=== PATIENT | female | born 1935 | race Caucasian/White ===

== ENCOUNTER → 2023-03-27 | Outpatient (CLI) | payer MEDICARE, BC ==
--- NOTE | 2023-03-27 12:21 | XR ---
EXAMINATION TYPE: XR foot complete 3 views LT DATE OF EXAM: 03/27/2023 Comparison: None Clinical History: 87-year-old female L97.522 NON PRESSURE CHRONIC ULCER OF OTHER PART OF LEFT JEANINE Findings: Marked osteopenia. Degenerative change throughout the TMT joint articulations. Hammertoes. The degree of osteopenia limits assessment for subtle nondisplaced fractures. There is generalized soft tissue swelling in the visualized lower leg. Some possible degenerative subchondral sclerosis at the tibiota lar joint. Tiny plantar heel spur. Possible mild pes planus. No displaced fracture is seen. Impression: 1. 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 2. Pes planus is suggested. 3. There may be some degenerative subchondral sclerosis at the ankle joint. 4. The degree of osteopenia limits assessment. No displaced fracture seen. 5. Generalized soft tissue swelling of the visualized length.
[2023-03-27 16:06] LABS: Prealbumin 16.1 mg/dL (18.0-42.0)
[2023-03-27 16:18] LABS: ALT 226 U/L (8-44); AST 230 U/L (13-35); Albumin 3.8 d/dL (3.8-4.9); Albumin/Globulin Ratio 1.15 Ratio (1.60-3.17); Alkaline Phosphatase 708 U/L (41-126); BUN/Creat Ratio 62.33 Ratio (12.00-20.00); Blood Urea Nitrogen 56.1 mg/dL (9.0-27.0); Calcium 9.5 mg/dL (8.7-10.3); Carbon Dioxide 21.5 mmol/L (21.6-31.8); Chloride 100 mmol/L (96-109); Globulin 3.3 d/dL (1.6-3.3); Glucose 101 mg/dL (70-110); Potassium 4.4 mmol/L (3.5-5.5); Sodium 135 mmol/L (135-145); Total Bilirubin 1.8 mg/dL (0.3-1.2); Total Protein 7.1 d/dL (6.2-8.2)
[2023-03-27 16:21] LABS: Basophils # (A) 0.03 X 10*3/uL (0.00-0.10); Eosinophils # (A) 0.02 X 10*3/uL (0.04-0.35); Eosinophils % (A) 0.7 %; HCT 38.3 % (37.2-46.3); HGB 12.7 d/dL (12.0-15.0); Immature Platelet Fraction 6.4 % (1.1-6.1); Lymphocytes # (A) 0.43 X 10*3/uL (0.90-5.00); Lymphocytes % (A) 14.1 %; MCH 33.7 pg (27.0-32.0); MCHC 33.2 d/dL (32.0-37.0); MCV 101.6 FL (80.0-97.0); Mean Platelet Volume 11.2 FL (9.5-12.2); Monocytes # (A) 0.32 X 10*3/uL (0.20-1.00); Monocytes % (A) 10.5 %; NRBC Per 100 WBC 0 X 10*3/uL (0.00-0.01); Neutrophils # (A) 2.23 X 10*3/uL (1.80-7.70); Neutrophils % (A) 73.4 %; Platelet Count 67 X 10*3/uL (140-440); RBC 3.77 X 10*6/uL (4.10-5.20); RBC Morphology Normal (Normal); RDW 15.2 % (11.5-14.5); WBC 3.04 X 10*3/uL (4.50-10.00)
== END | disposition home or self-care (01) ==
LOC: LABWHC1 10:03
PROVIDERS: ATTEND Podiatrist
DX: I10 Essential (primary) hypertension (principal); L97.522 Non-pressure chronic ulcer of other part of left foot with fat layer exposed; I73.9 Peripheral vascular disease, unspecified; G60.3 Idiopathic progressive neuropathy
CPT/HCPCS: 36415; 80053; 84134; 85025

== ENCOUNTER → 2023-06-03 | Outpatient (CLI) | payer MEDICARE, BC ==
--- NOTE | 2023-06-03 20:23 | US ---
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 Loss of feeling at bottom of foot. History of: Smoker: Previous Hypertension: No Diabetic: No Hyperlipidemia: No TIA/CVA: No Previous Vascular Surgery: No CAD: Yes WV: No Vascular Ulcers: Left Claudication: No Gangrene: No Doppler Waveforms: Are normal bilaterally with triphasic waveforms with the exception below. Right: Monophasic waveforms are within the distal digit. Left: Monophasic wave forms are within the distal digit Right Brachial Pressure: 121 Left Brachial Pressure: 107 Ankle-Brachial Indices: Right: 1.2 Left: 1.3 Toe Brachial Indices: Right: 0.9 Left: 0.9 IMPRESSION: No significant flow-limiting stenosis by arterial ultrasound.
== END | disposition home or self-care (01) ==
LOC: RADUSWWP 12:50
PROVIDERS: ATTEND Podiatrist
DX: I87.2 Venous insufficiency (chronic) (peripheral) (principal)
CPT/HCPCS: 93922

== ENCOUNTER 2023-06-05 20:08 | Emergency (ER) | payer BC, MEDICARE ==
[2023-06-05 20:22] VITALS: RESP 16; TEMP 97.5
--- NOTE | 2023-06-05 20:30 | ED ---
Altered Mental Status HPI - General Chief Complaint: Altered Mental Status Stated Complaint: UTI WEAKNESS Time Seen by Provider: 06/05/23 20:15 Source: patient, EMS Mode of arrival: EMS Limitations: no limitations - History of Present Illness Initial Comments: 87-year-old female with past medical history of recurrent UTIs who presents to the emergency department with daughter who is reporting change in her mental status. Daughter provides history. States that her mother has had some worsening confusion over the past week. It is very consistent of when she gets urinary tract infections. Today she went over to her house to find her on the toilet. She was dry heaving. She seemed very weak and therefore they called EMS. Patient arrives and has no complaints. No recent fevers. She denies any nausea at this time. No burning, blood or frequency of urination. No black or bloody stools. She has had some increasing lower extremity swelling. No other alleviating, precipitating or modifying factors - Related Data Allergies Allergy/AdvReac Type Severity Reaction Status Date / Time Penicillins Allergy Rash/Hives Verified 06/05/23 20:23 Review of Systems ROS Statement: Those systems with pertinent positive or pertinent negative responses have been documented in the HPI. ROS Other: All systems not noted in ROS Statement are negative. Past Medical History History of Any Multi-Drug Resistant Organisms: None Reported Past Surgical History: Section Additional Past Surgical History / Comment(s): Rt hip replacement Past Psychological History: No Psychological Hx Reported Smoking Status: Former smoker Past Alcohol Use History: None Reported Past Drug Use History: None Reported General Exam Limitations: no limitations General appearance: alert, in no apparent distress Head exam: Present: atraumatic, normocephalic, normal inspection Eye exam: Present: normal appearance, PERRL, EOMI. Absent: scleral icterus, conjunctival injection, periorbital swelling ENT exam: Present: normal exam, mucous membranes moist Neck exam: Present: normal inspection. Absent: tenderness, meningismus, lymphadenopathy Respiratory exam: Present: normal lung sounds bilaterally. Absent: respiratory distress, wheezes, rales, rhonchi, stridor Cardiovascular Exam: Present: regular rate, normal rhythm, normal heart sounds. Absent: systolic murmur, diastolic murmur, rubs, gallop, clicks GI/Abdominal exam: Present: soft, normal bowel sounds. Absent: distended, tenderness, guarding, rebound, rigid Extremities exam: Present: full ROM, normal capillary refill, pedal edema (3+ ). Absent: tenderness, joint swelling, calf tenderness Back exam: Present: normal inspection Neurological exam: Present: alert, CN II-XII intact Psychiatric exam: Present: normal mood, flat affect Skin exam: Present: warm, dry, intact, normal color. Absent: rash Course Vital Signs 06/05/23 06/05/23 06/06/23 20:12 23:22 01:22 Temperature 97.5 F L Pulse Rate 58 L 56 L 52 L Respiratory 16 16 16 Rate Blood Pressure 130/55 130/59 135/57 O2 Sat by Pulse 94 L 96 97 Oximetry Medical Decision Making - Medical Decision Making Was pt. sent in by a medical professional or institution ([facility], HAND MOLDER, urgent care, hospital, or residential...) When possible be specific @ -No Did you speak to anyone other than the patient for history (EMS, parent, family, police, friend...)? What history was obtained from this source @ -I spoke with EMS and the daughter at bedside Did you review nursing and triage notes (agree or disagree)? Why? @ -I reviewed and agree with nursing and triage notes Were old charts reviewed (outside hosp., previous admission, EMS record, old EKG, old radiological studies, urgent care reports/EKG's, residential records)? Report findings @ -Labs were reviewed from March of this year Differential Diagnosis (chest pain, altered mental status, abdominal pain women, abdominal pain men, vaginal bleeding, weakness, fever, dyspnea, syncope, headache, dizziness, GI bleed, back pain, seizure, CVA, palpatations, mental health, musculoskeletal)? @ -Differential Altered Mental Status: Hypoglycemia, DKA, hypercapnia, ETOH, overdose, CO poisoning, trauma, myxedema coma, HTN encephalopathy, infection, encephalitis, psychosis, intercranial hemorrhage, hepatic encephalopathy, meningitis, CVA, this is not meant to be an all-inclusive list EKG interpreted by me (3pts min.). @ -Demonstrates sinus bradycardia with a rate of 56. MS interval 201. QRS 88. QTC 402. No acute ST segment elevations or depressions X-rays interpreted by me (1pt min.). @ -Yes and demonstrates large hiatal hernia CT interpreted by me (1pt min.). @ -Yes and demonstrates pancreatic mass, adenopathy, marked hepatomegaly and splenomegaly U/S interpreted by me (1pt. min.). @ -None done What testing was considered but not performed or refused? (CT, X-rays, U/S, labs)? Why? @ -Lower extremity Dopplers however patient needs to be transferred at this time and therefore further testing will be deferred to receiving facility What meds were considered but not given or refused? Why? @ -None Did you discuss the management of the patient with other professionals (professionals i.e. DrCurt, PA, HAND MOLDER, lab, RT, psych nurse, case management social worker, automotive exhaust emissions technician, teacher, vessel traffic officer, manager case)? Give summary @ -Spoke with Dr. Street who states that the patient needs to be transferred Was smoking cessation discussed for >3mins.? @ -No Was critical care preformed (if so, how long)? @ -No Were there social determinants of health that impacted care today? How? (Homelessness, low income, unemployed, alcoholism, drug addiction, transportation, low edu. Level, literacy, decrease access to med. care, shelter, rehab)? @ -No Was there de-escalation of care discussed even if they declined (Discuss DNR or withdrawal of care, Hospice)? DNR status @ -No What co-morbidities impacted this encounter? (DM, HTN, Smoking, COPD, CAD, Cancer, CVA, ARF, Chemo, Hep., AIDS, mental health diagnosis, sleep apnea, morbid obesity)? @ -Recurrent UTIs Was patient admitted / discharged? Hospital course, mention meds given and route, prescriptions, significant lab abnormalities, going to OR and other pertinent info. @ -Upon arrival patient was placed into room 21. A thorough history and physical exam was performed. IV is established. Laboratory studies are conducted. Urinalysis does demonstrate UTI. She is given a dose of Rocephin. Laboratory studies reveal elevated liver enzymes. CT was performed which demonstrates pancreatic mass. Called and spoke with Dr. Street who is refusing admission. States the patient needs to be transferred for GI. Called and spoke with [facility] [place]. They do accept the patient is a transfer. COBRA forms are signed. Patient is transferred in stable condition. Undiagnosed new problem with uncertain prognosis? @ -Yes Drug Therapy requiring intensive monitoring for toxicity (Heparin, Nitro, Insulin, Cardizem)? @ -No Were any procedures done? @ -No Diagnosis/symptom? @ -Acute encephalopathy, acute UTI, transaminitis, pancreatic mass Acute, or Chronic, or Acute on Chronic? @ -Acute Uncomplicated (without systemic symptoms) or Complicated (systemic symptoms)? @ -Complicated Side effects of treatment? @ -No Exacerbation, Progression, or Severe Exacerbation? @ -No Poses a threat to life or bodily function? How? (Chest pain, USA, VT, pneumonia, PE, COPD, DKA, ARF, appy, cholecystitis, CVA, Diverticulitis, Homicidal, Suicidal, threat to staff... and all critical care pts) @ -No - Lab Data Result diagrams: 06/05/23 21:20 06/05/23 21:20 Lab Results 06/05/23 06/05/23 06/05/23 Range/Units 21:20 21:20 21:20 WBC 2.4 L (3.8-10.6) k/uL RBC 3.77 L (3.80-5.40) m/uL Hgb 13.0 (11.4-16.0) gm/dL Hct 38.1 (34.0-46.0) % MCV 101.2 H (80.0-100.0) fL MCH 34.6 (25.0-35.0) pg MCHC 34.2 (31.0-37.0) g/dL RDW 14.7 (11.5-15.5) % Plt Count 72 L (150-450) k/uL MPV 8.2 Neutrophils % 78 % Lymphocytes % 13 % Monocytes % 7 % Eosinophils % 1 % Basophils % 0 % Neutrophils # 1.9 (1.3-7.7) k/uL Lymphocytes # 0.3 L (1.0-4.8) k/uL Monocytes # 0.2 (0-1.0) k/uL Eosinophils # 0.0 (0-0.7) k/uL Basophils # 0.0 (0-0.2) k/uL Manual Slide Review Performed Polychromasia Present Macrocytosis Slight PT 11.3 (9.0-12.0) sec INR 1.1 (<1.2) APTT 23.7 (22.0-30.0) sec Sodium 133 L (137-145) mmol/L Potassium 4.8 (3.5-5.1) mmol/L Chloride 100 (98-107) mmol/L Carbon Dioxide 26 (22-30) mmol/L Anion Gap 7 mmol/L BUN 66 H (7-17) mg/dL Creatinine 0.86 (0.52-1.04) mg/dL Est GFR (CKD-EPI)AfAm 70 (>60 ml/min/1.73 sqM) Est GFR (CKD-EPI)NonAf 61 (>60 ml/min/1.73 sqM) Glucose 119 H (74-99) mg/dL Plasma Lactic Acid Juan Jose (0.7-2.0) mmol/L Calcium 9.5 (8.4-10.2) mg/dL Total Bilirubin 2.3 H (0.2-1.3) mg/dL AST 235 H (14-36) U/L ALT 227 H (4-34) U/L Alkaline Phosphatase 624 H (38-126) U/L Troponin I (0.000-0.034) ng/mL NT-Pro-B Natriuret Pep 390 pg/mL Total Protein 7.1 (6.3-8.2) g/dL Albumin 3.5 (3.5-5.0) g/dL TSH 3.570 (0.465-4.680) mIU/L Urine Color Urine Appearance (Clear) Urine pH (5.0-8.0) Ur Specific [place] (1.001-1.035) Urine Protein (Negative) Urine Glucose (UA) (Negative) Urine Ketones (Negative) Urine Blood (Negative) Urine Nitrite (Negative) Urine Bilirubin (Negative) Urine Urobilinogen (<2.0) mg/dL Ur Leukocyte Esterase (Negative) Urine RBC (0-5) /hpf Urine WBC (0-5) /hpf Ur Squamous Epith Cells (0-4) /hpf Urine Bacteria (None) /hpf Digoxin 0.6 ng/mL 06/05/23 06/05/23 06/05/23 Range/Units 21:20 21:20 23:58 WBC (3.8-10.6) k/uL RBC (3.80-5.40) m/uL Hgb (11.4-16.0) gm/dL Hct (34.0-46.0) % MCV (80.0-100.0) fL MCH (25.0-35.0) pg MCHC (31.0-37.0) g/dL RDW (11.5-15.5) % Plt Count (150-450) k/uL MPV Neutrophils % % Lymphocytes % % Monocytes % % Eosinophils % % Basophils % % Neutrophils # (1.3-7.7) k/uL Lymphocytes # (1.0-4.8) k/uL Monocytes # (0-1.0) k/uL Eosinophils # (0-0.7) k/uL Basophils # (0-0.2) k/uL Manual Slide Review Polychromasia Macrocytosis PT (9.0-12.0) sec INR (<1.2) APTT (22.0-30.0) sec Sodium (137-145) mmol/L Potassium (3.5-5.1) mmol/L Chloride (98-107) mmol/L Carbon Dioxide (22-30) mmol/L Anion Gap mmol/L BUN (7-17) mg/dL Creatinine (0.52-1.04) mg/dL Est GFR (CKD-EPI)AfAm (>60 ml/min/1.73 sqM) Est GFR (CKD-EPI)NonAf (>60 ml/min/1.73 sqM) Glucose (74-99) mg/dL Plasma Lactic Acid Juan Jose 0.8 (0.7-2.0) mmol/L Calcium (8.4-10.2) mg/dL Total Bilirubin (0.2-1.3) mg/dL AST (14-36) U/L ALT (4-34) U/L Alkaline Phosphatase (38-126) U/L Troponin I <0.012 (0.000-0.034) ng/mL NT-Pro-B Natriuret Pep pg/mL Total Protein (6.3-8.2) g/dL Albumin (3.5-5.0) g/dL TSH (0.465-4.680) mIU/L Urine Color Yellow Urine Appearance Clear (Clear) Urine pH 6.0 (5.0-8.0) Ur Specific [place] 1.015 (1.001-1.035) Urine Protein Negative (Negative) Urine Glucose (UA) Negative (Negative) Urine Ketones Negative (Negative) Urine Blood Negative (Negative) Urine Nitrite Negative (Negative) Urine Bilirubin Negative (Negative) Urine Urobilinogen <2.0 (<2.0) mg/dL Ur Leukocyte Esterase Moderate H (Negative) Urine RBC 4 (0-5) /hpf Urine WBC 9 H (0-5) /hpf Ur Squamous Epith Cells <1 (0-4) /hpf Urine Bacteria Many H (None) /hpf Digoxin ng/mL Disposition Clinical Impression: Pancreatic mass, Encephalopathy acute, UTI (urinary tract infection), Transaminitis Disposition: OTHER INSTITUTION NOT DEFINED Condition: Serious Is patient prescribed a controlled substance at d/c from ED?: No Referrals: Boby Singh DO [Primary Care Provider] - 1-2 days - Out of Hospital Transfer - Req. Specs Out of Hospital Transfer - Requested Specifics: Other Emergency Center ([facility]
--- NOTE | 2023-06-05 22:11 | XR ---
EXAMINATION TYPE: XR chest 2V DATE OF EXAM: 06/05/2023 COMPARISON: None TECHNIQUE: PA and lateral views submitted. HISTORY: Altered mental status FINDINGS: No pneumothorax. Tiny bilateral pleural effusions. Hypertrophic and degenerative changes spine. Conge stion compression deformities in the thoracic spine of indeterminate age. Arthropathy shoulders. Larg e hiatal hernia. Coarsened interstitium with emphysematous changes. Bibasilar subsegmental consolidat ion. IMPRESSION: 1. Large hiatal hernia with coarsened interstitium may been the basis of chronic interstitial lung di sease. Acute interstitial pneumonitis not excluded. 2. Bilateral basilar atelectasis favored over pneumonia.
[2023-06-05 22:16] LABS: Basophils % (A) 0 %; Eosinophils % (A) 1 %; HCT 38.1 % (34.0-46.0); Lymphocytes # (A) 0.3 k/uL (1.0-4.8); Lymphocytes % (A) 13 %; MCH 34.6 pg (25.0-35.0); MCHC 34.2 g/dL (31.0-37.0); MCV 101.2 fL (80.0-100.0); Macrocytosis Slight; Mean Platelet Volume 8.2; Monocytes # (A) 0.2 k/uL (0-1.0); Monocytes % (A) 7 %; Neutrophils # (A) 1.9 k/uL (1.3-7.7); Neutrophils % (A) 78 %; RBC 3.77 m/uL (3.80-5.40); RDW 14.7 % (11.5-15.5); WBC 2.4 k/uL (3.8-10.6)
[2023-06-05 22:21] LABS: INR 1.1 (<1.2); Partial Thromboplastin Time 23.7 sec (22.0-30.0); Prothrombin Time 11.3 sec (9.0-12.0)
[2023-06-05 22:27] LABS: ALT 227 U/L (4-34); AST 235 U/L (14-36); African American GFR (CKD) 70 (>60 ml/min/1.73 sqM); Albumin 3.5 g/dL (3.5-5.0); Anion Gap 7 mmol/L; Blood Urea Nitrogen 66 mg/dL (7-17); Calcium 9.5 mg/dL (8.4-10.2); Carbon Dioxide 26 mmol/L (22-30); Chloride 100 mmol/L (98-107); Glucose 119 mg/dL (74-99); Non-African American GFR(CKD) 61 (>60 ml/min/1.73 sqM); Potassium 4.8 mmol/L (3.5-5.1); Sodium 133 mmol/L (137-145); Total Bilirubin 2.3 mg/dL (0.2-1.3); Total Protein 7.1 g/dL (6.3-8.2)
[2023-06-05 22:35] LABS: NT-Pro-B-Type Natriuretic Pept 390 pg/mL
[2023-06-05 22:43] LABS: Platelet Count 72 k/uL (150-450); Polychromasia Present
[2023-06-05 23:03] LABS: Alkaline Phosphatase 624 U/L (38-126); Digoxin 0.6 ng/mL
[2023-06-06 00:27] LABS: Appearance,Urine Clear (Clear); Bacteria,Urine Many /hpf; Bilirubin,Urine Negative (Negative); Blood,Urine Negative (Negative); Color,Urine Yellow; Glucose,Urine (UA) Negative (Negative); Ketones,Urine Negative (Negative); Leukocyte Esterase,Urine Moderate (Negative); Nitrite,Urine Negative (Negative); Protein,Urine Negative (Negative); RBC,Urine 4 /hpf (0-5); Specific Gravity,Urine 1.015 (1.001-1.035); Squamous Epithelial Cell,Urine <1 /hpf (0-4); Urobilinogen,Urine <2.0 mg/dL (<2.0); WBC,Urine 9 /hpf (0-5)
[2023-06-06] MEDS ORDERED: cefTRIAXone IN SWFI 1,000 MG/10 ML SYRINGE IVP STA (00:30)
--- NOTE | 2023-06-06 00:57 | CT ---
EXAMINATION TYPE: CT abdomen pelvis w con DATE OF EXAM: 06/06/2023 COMPARISON: None HISTORY: Abdominal pain CT DLP: 737.6 mGycm Automated exposure control for dose reduction was used. CONTRAST: CT scan of the abdomen pelvis is performed with IV Contrast, patient injected with 100mL mL of Isovue 300. FINDINGS- LUNG BASES- bilateral subsegmental consolidation. There is a very large hiatal hernia containing the majority of the stomach. Cardiomegaly with coronary artery and aortic valve calcification. LIVER/GB- there is intrahepatic biliary ductal dilation. Gallbladder appears to BE distended with g allstone seen within the dependent portion of the gallbladder. There is lobulated contour to the liver correlate for hepatocellular disease. Prominent recanalized periumbilical vein. PANCREAS- there is pancreatic ductal dilation. Largest cystic area is seen in the peripancreatic spa ce and pancreatic body measuring 3.2 cm. Pancreatic mass in the differential diagnosis. SPLEEN- spleen is enlarged measuring 19 cm and is extensive intra-abdominal varices. Pelvic varices are also noted extensively with large vascular structures in the presacral space. ADRENALS- nonspecific bilateral adrenal gland thickening KIDNEYS/[id number]-[id number] renal cortical and parapelvic cysts are noted. Mild bilateral pelvocaliec tasis. No definite calcifications. BOWEL- there is extensive changes of diverticulosis and there is retained debris correlate for const ipation. Appendix not visualized. Numerous air filled small bowel loops are seen in a nonspecific pat tern. LYMPH NODES- in the peripancreatic region there is soft tissue nodule with a short axis measurement of 1.1 cm compatible adenopathy. OSSEOUS STRUCTURES- postsurgical change involving the right shoulder with left hip arthropathy. Scol iosis with severe multilevel degenerative disc disease and facet arthropathy. Multilevel canal stenos is. OTHER- aorta of normal caliber with mild atherosclerotic changes. IMPRESSION- 1. Correlate for hepatocellular disease and portal venous hypertension with marked splenomegaly measu ring 19 cm. 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 2. Mild intra and extrahepatic biliary ductal dilation. Dilated pancreatic duct with a 3.2 cm cystic mass involving the body the pancreas. Recommend MRI to assess for neoplastic disease. 3. Borderline adenopathy in the peripancreatic region. 4. The gallbladder hydrops with cholelithiasis. 5. Large hiatal hernia containing the entire stomach.
[2023-06-06 01:29] VITALS: BP 135/57; PULSE 52
== END 2023-06-06 02:50 | disposition other institution (70) ==
LOC: EC 20:08
DX: G93.40 Encephalopathy, unspecified (principal); N39.0 Urinary tract infection, site not specified; R74.01 Elevation of levels of liver transaminase levels; K86.9 Disease of pancreas, unspecified; Z87.891 Personal history of nicotine dependence; Z88.0 Allergy status to penicillin
CPT/HCPCS: 36415; 93005; 83880; 80053; 84443; 80162; 83605; 84484; 85025; 85610; 85730; 81001; 87040; 71046; 74177; 99285; 96374; J0696; Q9967

== ENCOUNTER 2023-06-22 06:33 | Inpatient (IN) | payer MEDICARE, BC ==
--- NOTE | 2023-06-22 07:53 | XR ---
EXAMINATION TYPE: XR chest 1V portable DATE OF EXAM: 06/22/2023 7:34 AM COMPARISON: Chest radiographs from 06/05/2023 TECHNIQUE: XR chest 1V portable Portable AP radiograph of the chest. CLINICAL INDICATION:Female, 87 years old with history of altered mental status; FINDINGS: Lungs/Pleura: Blunting of both costophrenic angles with bibasilar airspace opacities. Hyperinflation. No pneumothorax. Pulmonary vascularity: Unremarkable. Heart/mediastinum: Cardiomediastinal silhouette is enlarged and stable. Atherosclerotic calcificatio ns are seen in the aorta. Musculoskeletal: No acute osseous pathology. Other findings: Large hiatal hernia. IMPRESSION: 1. Background COPD changes with small bilateral pleural effusions with bibasilar patchy airspace opa cities concerning for infiltrates versus atelectasis. 2. Large hiatal hernia.
[2023-06-22] MEDS ORDERED: SODIUM CHLORIDE 0.9% 1,000 ML IV ONE (07:55)
[2023-06-22 08:32] LABS: INR 1.1 (<1.2); Partial Thromboplastin Time 25.4 sec (22.0-30.0); Prothrombin Time 11.1 sec (9.0-12.0)
[2023-06-22 08:37] LABS: Basophils % (A) 0 %; Eosinophils # (A) 0.1 k/uL (0-0.7); Eosinophils % (A) 1 %; HCT 33.6 % (34.0-46.0); HGB 11.7 gm/dL (11.4-16.0); Lymphocytes # (A) 0.5 k/uL (1.0-4.8); Lymphocytes % (A) 10 %; MCH 34.5 pg (25.0-35.0); MCHC 34.9 g/dL (31.0-37.0); Macrocytosis Slight; Mean Platelet Volume 8.6; Monocytes # (A) 0.5 k/uL (0-1.0); Monocytes % (A) 10 %; Neutrophils # (A) 4.1 k/uL (1.3-7.7); Neutrophils % (A) 77 %; RBC 3.39 m/uL (3.80-5.40); RDW 15.1 % (11.5-15.5); WBC 5.3 k/uL (3.8-10.6)
[2023-06-22 08:43] LABS: ALT 87 U/L (4-34); AST 86 U/L (14-36); African American GFR (CKD) >90 (>60 ml/min/1.73 sqM); Albumin 2.2 g/dL (3.5-5.0); Alkaline Phosphatase 420 U/L (38-126); Anion Gap 1 mmol/L; Blood Urea Nitrogen 31 mg/dL (7-17); Calcium 8.9 mg/dL (8.4-10.2); Carbon Dioxide 26 mmol/L (22-30); Chloride 102 mmol/L (98-107); Glucose 103 mg/dL (74-99); Non-African American GFR(CKD) 82 (>60 ml/min/1.73 sqM); Potassium 4.3 mmol/L (3.5-5.1); Sodium 129 mmol/L (137-145)
[2023-06-22] MEDS ORDERED: SODIUM CHLORIDE 0.9% 1,000 ML IV SCH (08:45)
--- NOTE | 2023-06-22 08:45 | ED ---
General Adult HPI - General Chief complaint: Altered Mental Status Stated complaint: AMS Time Seen by Provider: 06/22/23 06:44 Source: family, EMS, RN notes reviewed Mode of arrival: EMS Limitations: altered mental status - History of Present Illness Initial comments: This an 87-year-old female presents emergency Department from detention for evaluation multiple mental status. Daughter is here providing primary information patient was recently seen in the emergency Department was transferred to for [facility] for evaluation of pancreatic abnormality. Patient did have further testing including MRI showing what they believe is pancreatic cancer. They have decided not to pursue any treatment of this what patient was not placed on any palliative or hospice care. Patient was sent to detention for rehab as she is very weak leaving the hospital. Patient normally converses with normal difficulty but is now very lethargic, not conversing well as this is been declining over the last few days. Patient developed severe diarrhea and vomiting has not been eating well since being at the detention. Patient is unable to provide information including possibility of chest pain, abdominal pain any known fever or any specific complaints. - Related Data Home Medications Medication Instructions Recorded Confirmed Dextran/Hypromellose/Glycerin 1 drop BOTH EYES DAILY PRN 06/22/23 06/22/23 [Genteal Tears 0.1%-0.2%-0.3%] Digoxin [Digitek] 62.5 mcg PO DAILY@0600 06/22/23 06/22/23 Ensure Enlive 237 ml PO TID@0800,1200,1700 06/22/23 06/22/23 Hydrocerin External Cream 1 applic TOPICAL BID PRN 06/22/23 06/22/23 Levothyroxine Sodium [Synthroid] 50 mcg PO DAILY@0600 06/22/23 06/22/23 Magic Butt Paste 1 applic TOPICAL TID 06/22/23 06/22/23 Magnesium Hydroxide [Milk of 7,200 mg PO DAILY PRN 06/22/23 06/22/23 Magnesia Concentrate] Na Phos,M-B/Na Phos,Di-Ba [Fleet 133 ml RECTAL DAILY PRN 06/22/23 06/22/23 Adult] Sennosides/Docusate Sodium [Senna 2 tab PO BID PRN 06/22/23 06/22/23 Plus 8.6-50 mg Tablet] Tamsulosin HCl [Flomax] 0.4 mg PO DAILY@0800 06/22/23 06/22/23 bisacodyL [Dulcolax] 10 mg RECTAL DAILY PRN 06/22/23 06/22/23 dilTIAZem HCL [Cardizem CD] 120 mg PO DAILY@0800 06/22/23 06/22/23 polyethylene glycoL 3350 [Miralax] 17 gm PO Q4H PRN 06/22/23 06/22/23 Allergies Allergy/AdvReac Type Severity Reaction Status Date / Time Penicillins Allergy Rash/Hives Verified 06/22/23 08:29 Review of Systems ROS Statement: Those systems with pertinent positive or pertinent negative responses have been documented in the HPI. ROS Other: All systems not noted in ROS Statement are negative. Past Medical History History of Any Multi-Drug Resistant Organisms: None Reported Past Surgical History: Section Additional Past Surgical History / Comment(s): Rt hip replacement Past Psychological History: No Psychological Hx Reported Smoking Status: Former smoker Past Alcohol Use History: None Reported Past Drug Use History: None Reported General Exam Limitations: altered mental status General appearance: alert, in no apparent distress Head exam: Present: atraumatic, normocephalic, normal inspection Eye exam: Present: normal appearance, PERRL, EOMI. Absent: scleral icterus, conjunctival injection, periorbital swelling ENT exam: Present: normal exam, normal oropharynx, mucous membranes moist Neck exam: Present: normal inspection, full ROM. Absent: tenderness, meningismus, lymphadenopathy Respiratory exam: Present: normal lung sounds bilaterally. Absent: respiratory distress, wheezes, rales, rhonchi, stridor Cardiovascular Exam: Present: regular rate, normal rhythm, normal heart sounds. Absent: systolic murmur, diastolic murmur, rubs, gallop, clicks GI/Abdominal exam: Present: soft, normal bowel sounds. Absent: distended, tenderness, guarding, rebound, rigid Neurological exam: Present: alert. Absent: oriented X3 Skin exam: Present: warm, dry, intact, normal color. Absent: rash Course Vital Signs 06/22/23 06/22/23 06/22/23 06:52 07:56 09:36 Temperature 98.3 F 97.4 F L Pulse Rate 80 80 80 Respiratory 16 18 16 Rate Blood Pressure 121/62 111/58 105/55 O2 Sat by Pulse 91 L 92 L 91 L Oximetry EKG Findings - EKG Comments: EKG Findings:: EKG performed at 17:40 sinus rhythm with first-degree block rate of 77 ND 248 QRS 90 QT/QTC 356/388 - EKG Results: EKG: interpreted by SEGUNDO Medical Decision Making - Medical Decision Making Was pt. sent in by a medical professional or institution (, PA, OFFSET LITHOGRAPHIC PRESS OPERATOR, urgent care, hospital, or detention...) When possible be specific @ -alf Did you speak to anyone other than the patient for history (EMS, parent, family, police, friend...)? What history was obtained from this source @ -EMS and family room providing all significant history Did you review nursing and triage notes (agree or disagree)? Why? @ -I reviewed and agree with nursing and triage notes Were old charts reviewed (outside hosp., previous admission, EMS record, old EKG, old radiological studies, urgent care reports/EKG's, detention records)? Report findings @ -Reviewed recent ER visits including laboratory studies, CT Differential Diagnosis (chest pain, altered mental status, abdominal pain women, abdominal pain men, vaginal bleeding, weakness, fever, dyspnea, syncope, headache, dizziness, GI bleed, back pain, seizure, CVA, palpatations, mental health, musculoskeletal)? @ -nDifferential Altered Mental Status: Hypoglycemia, DKA, hypercapnia, ETOH, overdose, CO poisoning, trauma, myxedema coma, HTN encephalopathy, infection, encephalitis, psychosis, intercranial hemorrhage, hepatic encephalopathy, meningitis, CVA, this is not meant to be an all-inclusive listable EKG interpreted by me (3pts min.). @ -As above X-rays interpreted by me (1pt min.). @ -Chest x-ray shows possible atelectasis or early infiltrate CT interpreted by me (1pt min.). @ -None done U/S interpreted by me (1pt. min.). @ -None done What testing was considered but not performed or refused? (CT, X-rays, U/S, labs)? Why? @ -None What meds were considered but not given or refused? Why? @ -None Did you discuss the management of the patient with other professionals (professionals i.e. , RANDALL, OFFSET LITHOGRAPHIC PRESS OPERATOR, lab, RT, psych nurse, social work manager, engraver hand hard metals, teacher, motorcycle police officer, case managers)? Give summary @ -Dr. Street for admission given patient UTI, dehydration, altered mental status Was smoking cessation discussed for >3mins.? @ -No Was critical care preformed (if so, how long)? @ -No Were there social determinants of health that impacted care today? How? (Homelessness, low income, unemployed, alcoholism, drug addiction, transportation, low edu. Level, literacy, decrease access to med. care, assisted, rehab)? @ -No Was there de-escalation of care discussed even if they declined (Discuss DNR or withdrawal of care, Hospice)? DNR status @ -No What co-morbidities impacted this encounter? (DM, HTN, Smoking, COPD, CAD, Cancer, CVA, ARF, Chemo, Hep., AIDS, mental health diagnosis, sleep apnea, morbid obesity)? @ -Pancreatic cancer Was patient admitted / discharged? Hospital course, mention meds given and route, prescriptions, significant lab abnormalities, going to OR and other pertinent info. @ -Admitted patient is improved after some IV fluids patient's found to have UTI, dehydration. Patient's been having increasing weakness, change in mental status or last few days. She has no focal neurological deficits. Patient will be given Rocephin, blood culture drawn, urine culture. Patient will have additional x-ray of the hip ordered as she is not complaining of hip pain. Undiagnosed new problem with uncertain prognosis? @ -No Drug Therapy requiring intensive monitoring for toxicity (Heparin, Nitro, Insulin, Cardizem)? @ -No Were any procedures done? @ -No Diagnosis/symptom? @ -Weakness, UTI, altered mental status, dehydration Acute, or Chronic, or Acute on Chronic? @ -Acute Uncomplicated (without systemic symptoms) or (systemic symptoms)? @ -complicated Side effects of treatment? @ -No Exacerbation, Progression, or Severe Exacerbation? @ -No Poses a threat to life or bodily function? How? (Chest pain, USA, OR, pneumonia, PE, COPD, DKA, ARF, appy, cholecystitis, CVA, Diverticulitis, Homicidal, Suicidal, threat to staff... and all critical care pts) @ -[yes patient has pancreatic cancer, UTI, possible early sepsis - Lab Data Result diagrams: 06/22/23 07:13 06/22/23 07:13 Lab Results 06/22/23 06/22/23 06/22/23 Range/Units 07:13 07:13 07:13 WBC 5.3 (3.8-10.6) k/uL RBC 3.39 L (3.80-5.40) m/uL Hgb 11.7 (11.4-16.0) gm/dL Hct 33.6 L (34.0-46.0) % MCV 99.0 (80.0-100.0) fL MCH 34.5 (25.0-35.0) pg MCHC 34.9 (31.0-37.0) g/dL RDW 15.1 (11.5-15.5) % Plt Count 71 L (150-450) k/uL MPV 8.6 Neutrophils % 77 % Lymphocytes % 10 % Monocytes % 10 % Eosinophils % 1 % Basophils % 0 % Neutrophils # 4.1 (1.3-7.7) k/uL Lymphocytes # 0.5 L (1.0-4.8) k/uL Monocytes # 0.5 (0-1.0) k/uL Eosinophils # 0.1 (0-0.7) k/uL Basophils # 0.0 (0-0.2) k/uL Macrocytosis Slight PT 11.1 (9.0-12.0) sec INR 1.1 (<1.2) APTT 25.4 (22.0-30.0) sec Sodium 129 L (137-145) mmol/L Potassium 4.3 (3.5-5.1) mmol/L Chloride 102 (98-107) mmol/L Carbon Dioxide 26 (22-30) mmol/L Anion Gap 1 mmol/L BUN 31 H (7-17) mg/dL Creatinine 0.59 (0.52-1.04) mg/dL Est GFR (CKD-EPI)AfAm >90 (>60 ml/min/1.73 sqM) Est GFR (CKD-EPI)NonAf 82 (>60 ml/min/1.73 sqM) Glucose 103 H (74-99) mg/dL Calcium 8.9 (8.4-10.2) mg/dL Total Bilirubin 2.0 H (0.2-1.3) mg/dL AST 86 H (14-36) U/L ALT 87 H (4-34) U/L Alkaline Phosphatase 420 H (38-126) U/L Ammonia (<30) umol/L Troponin I (0.000-0.034) ng/mL Total Protein 5.0 L (6.3-8.2) g/dL Albumin 2.2 L (3.5-5.0) g/dL Urine Color Urine Appearance (Clear) Urine pH (5.0-8.0) Ur Specific [place] (1.001-1.035) Urine Protein (Negative) Urine Glucose (UA) (Negative) Urine Ketones (Negative) Urine Blood (Negative) Urine Nitrite (Negative) Urine Bilirubin (Negative) Urine Urobilinogen (<2.0) mg/dL Ur Leukocyte Esterase (Negative) Urine RBC (0-5) /hpf Urine WBC (0-5) /hpf Urine WBC Clumps (None) /hpf Ur Yeast w Hyphae (None) /hpf Urine Yeast (Budding) (None) /hpf 06/22/23 06/22/23 06/22/23 Range/Units 07:13 07:13 08:06 WBC (3.8-10.6) k/uL RBC (3.80-5.40) m/uL Hgb (11.4-16.0) gm/dL Hct (34.0-46.0) % MCV (80.0-100.0) fL MCH (25.0-35.0) pg MCHC (31.0-37.0) g/dL RDW (11.5-15.5) % Plt Count (150-450) k/uL MPV Neutrophils % % Lymphocytes % % Monocytes % % Eosinophils % % Basophils % % Neutrophils # (1.3-7.7) k/uL Lymphocytes # (1.0-4.8) k/uL Monocytes # (0-1.0) k/uL Eosinophils # (0-0.7) k/uL Basophils # (0-0.2) k/uL Macrocytosis PT (9.0-12.0) sec INR (<1.2) APTT (22.0-30.0) sec Sodium (137-145) mmol/L Potassium (3.5-5.1) mmol/L Chloride (98-107) mmol/L Carbon Dioxide (22-30) mmol/L Anion Gap mmol/L BUN (7-17) mg/dL Creatinine (0.52-1.04) mg/dL Est GFR (CKD-EPI)AfAm (>60 ml/min/1.73 sqM) Est GFR (CKD-EPI)NonAf (>60 ml/min/1.73 sqM) Glucose (74-99) mg/dL Calcium (8.4-10.2) mg/dL Total Bilirubin (0.2-1.3) mg/dL AST (14-36) U/L ALT (4-34) U/L Alkaline Phosphatase (38-126) U/L Ammonia 86 H (<30) umol/L Troponin I <0.012 (0.000-0.034) ng/mL Total Protein (6.3-8.2) g/dL Albumin (3.5-5.0) g/dL Urine Color Yellow Urine Appearance Turbid H (Clear) Urine pH 7.0 (5.0-8.0) Ur Specific [place] 1.017 (1.001-1.035) Urine Protein 1+ H (Negative) Urine Glucose (UA) Negative (Negative) Urine Ketones Negative (Negative) Urine Blood Small H (Negative) Urine Nitrite Negative (Negative) Urine Bilirubin Negative (Negative) Urine Urobilinogen 2.0 (<2.0) mg/dL Ur Leukocyte Esterase Large H (Negative) Urine RBC 71 H (0-5) /hpf Urine WBC >182 H (0-5) /hpf Urine WBC Clumps Few H (None) /hpf Ur Yeast w Hyphae Moderate (None) /hpf Urine Yeast (Budding) Many H (None) /hpf Disposition Clinical Impression: UTI (urinary tract infection), Weakness, Diarrhea, Dehydration Disposition: ADMITTED IP TO THIS [facility] Condition: Poor Referrals: Boby Singh DO [Primary Care Provider] - 1-2 days Time of Disposition: 09:21
[2023-06-22 08:48] LABS: Platelet Count 71 k/uL (150-450)
[2023-06-22 08:55] LABS: Appearance,Urine Turbid (Clear); Bilirubin,Urine Negative (Negative); Blood,Urine Small (Negative); Budding Yeast,Urine Many /hpf; Color,Urine Yellow; Glucose,Urine (UA) Negative (Negative); Hyphae Yeast, Urine Moderate /hpf; Ketones,Urine Negative (Negative); Leukocyte Esterase,Urine Large (Negative); Nitrite,Urine Negative (Negative); Protein,Urine 1+ (Negative); RBC,Urine 71 /hpf (0-5); Specific Gravity,Urine 1.017 (1.001-1.035); WBC,Urine >182 /hpf (0-5)
[2023-06-22] MEDS ORDERED: NALOXONE 0.4 MG/ML 1 ML VIAL IV PRN (09:42)
[2023-06-22] MEDS ORDERED: ONDANSETRON 4 MG/2 ML VIAL IVP PRN (09:42)
[2023-06-22] MEDS ORDERED: KETOROLAC 15 MG/ML 1 ML VIAL IVP STA (09:45)
[2023-06-22] MEDS ORDERED: ARTIFICIAL TEARS-HYPROMELLOSE DROPS 15 ML BTL BOTH EYES PRN (09:46)
[2023-06-22] MEDS ORDERED: MINERAL OIL-WHITE PETROLATUM 120 GM JAR TOPICAL PRN (09:46)
[2023-06-22] MEDS ORDERED: bisacodyL 10 MG SUPP RECTAL PRN (09:46)
[2023-06-22] MEDS ORDERED: NA PHOS,M-B/NA PHOS,DI-BA 133 ML ENEMA RECTAL PRN (10:52)
--- NOTE | 2023-06-22 11:02 | XR ---
EXAMINATION TYPE: XR Hip RT and AP Pelvis DATE OF EXAM: 06/22/2023 10:56 AM CLINICAL INDICATION:Female, 87 years old with history of pain; COMPARISON: None. TECHNIQUE: The right hip was examined in the frontal and lateral projections and a AP pelvis. FINDINGS: Post arthroplasty changes, hardware is intact, alignment is appropriate. No evidence of fra cture. Postoperative changes of the soft tissues with subcutaneous gas. No evidence of any acute osse ous pathology or joint dislocation. Multilevel degeneration changes throughout the spine. Large amoun t stool in the rectum. IMPRESSION: Hip arthroplasty with hardware intact and in appropriate alignment. No acute fracture.
[2023-06-22] MEDS ORDERED: NON FORMULARY DRUG (Ensure Enlive 237 ML) PO SCH (12:00)
[2023-06-22] MEDS ORDERED: ACETAMINOPHEN TAB 325 MG TAB PO PRN (13:23)
[2023-06-22] MEDS ORDERED: LORazepam 2 MG/ML INJ IV PRN (13:23)
[2023-06-22] MEDS ORDERED: CALCIUM CARBONATE 500 MG CHEWABLE PO PRN (13:23)
[2023-06-22] MEDS ORDERED: MELATONIN 3 MG TABLET PO PRN (13:23)
[2023-06-22] MEDS: DEXTROSE 5%-0.45% NACL 1,000 ML IV SCH (13:41)
--- NOTE | 2023-06-22 14:34 | P.HPIM ---
History of Present Illness H&P Date: 06/22/23 Chief Complaint: Decreased response This is a 87-year-old patient who is a resident of [facility] [place]. Per EMS report: Staff reported to them that patient was not responding appr opriately this morning. Normally AO 2 but only AO 1 at best this morning. Patient moaned with painful stimuli. Patient was acting appropriately this morning. Patient is DO NOT RESUSCITATE but family requested hospitalization for evaluation. Patient in the ER is following simple commands example squeezing my finger or showing her tongue. Otherwise lethargic. Initial vital signs per EMS: Blood pressure 109/46, pulse 75, respiration 22, pulse ox 94% room air. Patient not able to answer any questions readily. She might nod her head Apparently patient was recently at [facility]. Diagnosis of cancer. Type unknown. Review of systems cannot be a prone patient very lethargic. No family at the bedside. Past medical history: No list available from [facility]. Physical examination: VITAL SIGNS: 97.4, 80, 16, 105/55, 91% room air] GENERAL: BMI 18.6, very thin build. Loss of subcutaneous fat. Some scattered bruising on arms and legs. Bony prominences. Lethargic. Just about arous able.. EYES: Pupils equal. Conjunctiva normal. HEENT: External appearance of nose and ears normal, oral cavity-dry mucous membranes. NECK: JVD not raised; masses not palpable. HEART: First and second heart sounds are normal; slight edema. LUNGS: Respiratory rate normal; decreased breath sound. ABDOMEN: Soft, nontender, liver spleen not palpable, no masses palpable. PSYCH: [Lethargic, just about able to nod her head. Follows some simple commands. L. MUSCULOSKELETAL:No Clubbing/cyanosis;muscles-grossly intact. Severe OA in multiple joints. Muscle muscle mass. Bony prominences. 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 Slow. LYMPHATICS: No lymph nodes palpable in the axilla and neck INVESTIGATIONS, reviewed in the clinical context: White count 5.3 hemoglobin 11.7 platelets 71 sodium 129 potassium 4.3 BUN 31 creatinine 0.59 total bilirubin 2.0 AST 86 ALT 87 albumin 2.2 UA: Negative for nitrite. Leukoesterase large. WBC 182. EKG tracing personally reviewed by me-normal sinus rhythm. Rate 77 Chest x-ray film personally reviewed by me-shows bilateral pleural effusion. Large hiatal hernia. Assessment and plan: -Acute change in mental status. Possibly acute metabolic encephalopathy. Could be from dehydration. Acute delirium. IV fluids. No obvious focal symptoms. -Clinical dehydration. IV fluids with D5 0.45. -Severe protein calorie malnutrition likely from decreased oral intake BMI 18.6. Loss of muscle mass. Albumin 2.2. Supervised feeding. 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 -Chronic medical debility patient is known to be non-ambulatory -Recent diagnosis of cancer with AMARILIS inhibitor to [facility]. Await further records. -Chronic urinary incontinence Continue Flomax -Essential hypertension. Currently blood pressure running low. Hold off antihypertensive -Hypothyroid Synthroid 50 g a day -Primary osteoarthritis multiple joints Tylenol as needed -DO NOT RESUSCITATE -KEVINA, son: Simeon gonzalez Neuro checks. IV hydration. Subcu Lovenox. Prognosis guarded. Aspiration precautions. Feeding with assistance. Neuro Checks will also be done. Spoke to patient is Dr. Olga Arce [phone] to the telephone. Patient was recently at [facility]. They had found some cyst in the pancreas and the liver. Family given her a decided not to pursue further. She understands prognosis guarded. Past Medical History History of Any Multi-Drug Resistant Organisms: None Reported Past Surgical History: Section Additional Past Surgical History / Comment(s): Rt hip replacement Past Psychological History: No Psychological Hx Reported Smoking Status: Former smoker Past Alcohol Use History: None Reported Past Drug Use History: None Reported Medications and Allergies Home Medications Medication Instructions Recorded Confirmed Type Dextran/Hypromellose/Glycerin 1 drop BOTH EYES DAILY PRN 06/22/23 06/22/23 History [Genteal Tears 0.1%-0.2%-0.3%] Digoxin [Digitek] 62.5 mcg PO DAILY@0606/22/23 06/22/23 History Ensure Enlive 237 ml PO TID@0800,1200,1700 06/22/23 06/22/23 History Hydrocerin External Cream 1 applic TOPICAL BID PRN 06/22/23 06/22/23 History Levothyroxine Sodium [Synthroid] 50 mcg PO DAILY@0600 06/22/23 09/11/23 History Magic Butt Paste 1 applic TOPICAL TID 06/22/23 06/22/23 History Magnesium Hydroxide [Milk of 7,200 mg PO DAILY PRN 06/22/23 06/22/23 History Magnesia Concentrate] Na Phos,M-B/Na Phos,Di-Ba [Fleet 133 ml RECTAL DAILY PRN 06/22/23 06/22/23 History Adult] Sennosides/Docusate Sodium [Senna 2 tab PO BID PRN 06/22/23 06/22/23 History Plus 8.6-50 mg Tablet] Tamsulosin HCl [Flomax] 0.4 mg PO DAILY@0806/22/23 06/22/23 History bisacodyL [Dulcolax] 10 mg RECTAL DAILY PRN 06/22/23 06/22/23 History dilTIAZem HCL [Cardizem CD] 120 mg PO DAILY@79906/22/23 06/22/23 History polyethylene glycoL 3350 [Miralax] 17 gm PO Q4H PRN 06/22/23 06/22/23 History Allergies Allergy/AdvReac Type Severity Reaction Status Date / Time Penicillins Allergy Rash/Hives Verified 06/22/23 08:29 Physical Exam Vitals: Vital Signs Temp Pulse Resp BP Pulse Ox 06/22/23 10:06 81 15 118/64 95 06/22/23 09:36 97.4 F L 80 16 105/55 91 L 06/22/23 07:56 80 18 111/58 92 L 06/22/23 06:52 98.3 F 80 16 121/62 91 L Intake and Output 06/21/23 06/22/23 06/22/23 22:59 06:59 14:59 Other: Weight 52.163 kg Results CBC & Chem 7: 06/22/23 07:13 06/22/23 07:13 Labs: Abnormal Lab Results - Last 24 Hours (Table) 06/22/23 06/22/23 06/22/23 Range/Units 07:13 07:13 07:13 RBC 3.39 L (3.80-5.40) m/uL Hct 33.6 L (34.0-46.0) % Plt Count 71 L (150-450) k/uL Lymphocytes # 0.5 L (1.0-4.8) k/uL Sodium 129 L (137-145) mmol/L BUN 31 H (7-17) mg/dL Glucose 103 H (74-99) mg/dL Total Bilirubin 2.0 H (0.2-1.3) mg/dL AST 86 H (14-36) U/L ALT 87 H (4-34) U/L Alkaline Phosphatase 420 H (38-126) U/L Ammonia 86 H (<30) umol/L Total Protein 5.0 L (6.3-8.2) g/dL Albumin 2.2 L (3.5-5.0) g/dL Urine Appearance (Clear) Urine Protein (Negative) Urine Blood (Negative) Ur Leukocyte Esterase (Negative) Urine RBC (0-5) /hpf Urine WBC (0-5) /hpf Urine WBC Clumps (None) /hpf Urine Yeast (Budding) (None) /hpf 06/22/23 Range/Units 08:06 RBC (3.80-5.40) m/uL Hct (34.0-46.0) % Plt Count (150-450) k/uL Lymphocytes # (1.0-4.8) k/uL Sodium (137-145) mmol/L BUN (7-17) mg/dL Glucose (74-99) mg/dL Total Bilirubin (0.2-1.3) mg/dL AST (14-36) U/L ALT (4-34) U/L Alkaline Phosphatase (38-126) U/L Ammonia (<30) umol/L Total Protein (6.3-8.2) g/dL Albumin (3.5-5.0) g/dL Urine Appearance Turbid H (Clear) Urine Protein 1+ H (Negative) Urine Blood Small H (Negative) Ur Leukocyte Esterase Large H (Negative) Urine RBC 71 H (0-5) /hpf Urine WBC >182 H (0-5) /hpf Urine WBC Clumps Few H (None) /hpf Urine Yeast (Budding) Many H (None) /hpf
[2023-06-22] MEDS ORDERED: ZINC OXIDE 20% OINT 28.4 GM TUBE TOPICAL PRN (16:00)
[2023-06-22 16:12] LABS: Glucose,Whole Blood 116 mg/dL (70-110)
[2023-06-23] MEDS: DEXTROSE 5%-0.45% NACL 1,000 ML IV SCH ×2 (00:58→11:04)
[2023-06-23 01:43] LABS: Glucose,Whole Blood 153 mg/dL (70-110)
[2023-06-23] MEDS ORDERED: DIGOXIN 62.5 MCG TAB PO SCH (06:00)
[2023-06-23] MEDS ORDERED: LEVOTHYROXINE 50 MCG TAB PO SCH (06:00)
[2023-06-23] MEDS: DILTIAZEM CD 120 MG CAP.ER.24H PO SCH ×2 (06:44→07:12)
[2023-06-23 07:53] VITALS: TEMP 98
[2023-06-23] MEDS ORDERED: TAMSULOSIN 0.4 MG CAP.ER.24H PO SCH (08:00)
[2023-06-23 13:32] VITALS: BP 109/51; PULSE 76; RESP 18
--- NOTE | 2023-06-23 14:02 | P.DS ---
Providers Date of admission: 06/22/23 09:54 Expected date of discharge: 06/23/23 Attending physician: Oscar Street Primary care physician: Boby Singh [facility] Course: Chief Complaint: Decreased response This is a 87-year-old patient who is a resident of [facility]. Per EMS report: Staff reported to them that patient was not responding appropriately this morning. Normally AO 2 but only AO 1 at best this morning. Patient moaned with painful stimuli. Patient was acting appropriately this morning. Patient is DO NOT RESUSCITATE but family requested hospitalization for evaluation. Patient in the ER is following simple commands example squeezing my finger or showing her tongue. Otherwise lethargic. Initial vital signs per EMS: Blood pressure 109/46, pulse 75, respiration 22, pulse ox 94% room air. Patient not able to answer any questions readily. She might nod her head Apparently patient was recently at [facility]. Diagnosis of cancer. Type unknown. June 23: Patient sitting up. More awake. A bit tired. Daughter the bedside. I spoke to the daughter lost weight over the phone. 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 There for cancer could not be ruled out. Family corrected opted not for any further investigation. Lengthy discussion was had with the daughter about diagnosis of UTI. Currently we'll give very short course of Omnicef. Daughter understands oral prognosis guarded. Patient tolerated a soft diet this morning. Return to [facility] today. Discussion and discharge planning more than 35 minutes . Past medical history: No list available from [facility]. Physical examination: VITAL SIGNS: 98, 74, 18, 109/51, 96% room air GENERAL: BMI 18.6, very thin build. Loss of subcutaneous fat. Some scattered bruising on arms and legs. Bony prominences. More awake answering questions EYES: Pupils equal. Conjunctiva normal. HEENT: External appearance of nose and ears normal, oral cavity-dry mucous membranes. NECK: JVD not raised; masses not palpable. HEART: First and second heart sounds are normal; slight edema. LUNGS: Respiratory rate normal; decreased breath sound. ABDOMEN: Soft, nontender, liver spleen not palpable, no masses palpable. PSYCH: [More awake today, answering simple questions MUSCULOSKELETAL:No Clubbing/cyanosis;muscles-grossly intact. Severe OA in multiple joints. Muscle muscle mass. Bony prominences. NEUROLOGICAL: [Cranial nerves grossly intact; no facial asymmetry, able to make a formulator and short tongue on command. Slow. INVESTIGATIONS, reviewed in the clinical context: White count 5.3 hemoglobin 11.7 platelets 71 sodium 129 potassium 4.3 BUN 31 creatinine 0.59 total bilirubin 2.0 AST 86 ALT 87 albumin 2.2 UA: Negative for nitrite. Leukoesterase large. WBC 182. EKG tracing personally reviewed by me-normal sinus rhythm. Rate 77 Chest x-ray film personally reviewed by me-shows bilateral pleural effusion. Large hiatal hernia. Assessment and plan: -Acute change in mental status. Possibly acute metabolic encephalopathy. Could be from dehydration. Acute delirium.: Better IV fluids. No obvious focal symptoms. -Clinical dehydration.: Better IV fluids with D5 0.45. -Possible acute UTI Received 1 dose of IV ceftriaxone in the ER. Omnicef 300 mg twice a day for total of 6 doses -Severe protein calorie malnutrition likely from decreased oral intake BMI 18.6. Loss of muscle mass. Albumin 2.2. Supervised feeding. 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 -Chronic medical debility patient is known to be non-ambulatory -Recent diagnosis of cancer with AMARILIS inhibitor to [facility]. Await further records. -Chronic urinary incontinence Continue Flomax -Essential hypertension. Currently blood pressure running low. Hold off antihypertensive -Hypothyroid Synthroid 50 g a day -Primary osteoarthritis multiple joints Tylenol as needed -DO NOT RESUSCITATE -POA, son: Simeon gonzalez Disposition: [facility] Past Medical History History of Any Multi-Drug Resistant Organisms: None Reported Past Surgical History: Section Additional Past Surgical History / Comment(s): Rt hip replacement Past Psychological History: No Psychological Hx Reported Smoking Status: Former smoker Past Alcohol Use History: None Reported Past Drug Use History: None Reported Medications and Allergies Home Medications Medication Instructions Recorded Confirmed Type Dextran/Hypromellose/Glycerin 1 drop BOTH EYES DAILY PRN 06/22/23 06/22/23 History [Genteal Tears 0.1%-0.2%-0.3%] Digoxin [Digitek] 62.5 mcg PO DAILY@0600 06/22/23 06/22/23 History Ensure Enlive 237 ml PO TID@0800,1200,1700 06/22/23 06/22/23 History Hydrocerin External Cream 1 applic TOPICAL BID PRN 06/22/23 06/22/23 History Levothyroxine Sodium [Synthroid] 50 mcg PO DAILY@0600 06/22/23 06/22/23 History Magic Butt Paste 1 applic TOPICAL TID 06/22/23 06/22/23 History Magnesium Hydroxide [Milk of 7,200 mg PO DAILY PRN 06/22/23 06/22/23 History Magnesia Concentrate] Na Phos,M-B/Na Phos,Di-Ba [Fleet 133 ml RECTAL DAILY PRN 06/22/23 06/22/23 History Adult] Sennosides/Docusate Sodium [Senna 2 tab PO BID PRN 06/22/23 06/22/23 History Plus 8.6-50 mg Tablet] Tamsulosin HCl [Flomax] 0.4 mg PO DAILY@0800 06/22/23 06/22/23 History bisacodyL [Dulcolax] 10 mg RECTAL DAILY PRN 06/22/23 06/22/23 History dilTIAZem HCL [Cardizem CD] 120 mg PO DAILY@0800 06/22/23 06/22/23 History polyethylene glycoL 3350 [Miralax] 17 gm PO Q4H PRN 06/22/23 06/22/23 History Allergies Allergy/AdvReac Type Severity Reaction Status Date / Time Penicillins Allergy Rash/Hives Verified 06/22/23 08:29 Plan - Discharge Summary New Discharge Prescriptions: New Acetaminophen Tab [Tylenol] 650 mg PO Q6HR PRN tab PRN Reason: Mild Pain Or Fever > 100.5 Continue Magnesium Hydroxide [Milk of Magnesia Concentrate] 7,200 mg PO DAILY PRN PRN Reason: Constipation bisacodyL [Dulcolax] 10 mg RECTAL DAILY PRN PRN Reason: Constipation Magic Butt Paste 1 applic TOPICAL TID Ensure Enlive 237 ml PO TID@0800,1200,1700 Sennosides/Docusate Sodium [Senna Plus 8.6-50 mg Tablet] 2 tab PO BID PRN PRN Reason: Constipation Hydrocerin External Cream 1 applic TOPICAL BID PRN PRN Reason: Dry Skin polyethylene glycoL 3350 [Miralax] 17 gm PO Q4H PRN PRN Reason: Constipation Na Phos,M-B/Na Phos,Di-Ba [Fleet Adult] 133 ml RECTAL DAILY PRN PRN Reason: Constipation Dextran/Hypromellose/Glycerin [Genteal Tears 0.1%-0.2%-0.3%] 1 drop BOTH EYES DAILY PRN PRN Reason: Dry Eye(S) Levothyroxine Sodium [Synthroid] 50 mcg PO DAILY@0600 dilTIAZem HCL [Cardizem CD] 120 mg PO DAILY@0800 Tamsulosin HCl [Flomax] 0.4 mg PO DAILY@0800 Digoxin [Digitek] 62.5 mcg PO DAILY@0600 Discharge Medication List Dextran/Hypromellose/Glycerin [Genteal Tears 0.1%-0.2%-0.3%] 1 drop BOTH EYES DAILY PRN 06/22/23 [History] Digoxin [Digitek] 62.5 mcg PO DAILY@0600 06/22/23 [History] Ensure Enlive 237 ml PO TID@0800,1200,1700 06/22/23 [History] Hydrocerin External Cream 1 applic TOPICAL BID PRN 06/22/23 [History] Levothyroxine Sodium [Synthroid] 50 mcg PO DAILY@0600 06/22/23 [History] Magic Butt Paste 1 applic TOPICAL TID 06/22/23 [History] Magnesium Hydroxide [Milk of Magnesia Concentrate] 7,200 mg PO DAILY PRN 06/22/23 [History] Na Phos,M-B/Na Phos,Di-Ba [Fleet Adult] 133 ml RECTAL DAILY PRN 06/22/23 [History] Sennosides/Docusate Sodium [Senna Plus 8.6-50 mg Tablet] 2 tab PO BID PRN 06/22/23 [History] Tamsulosin HCl [Flomax] 0.4 mg PO DAILY@0800 06/22/23 [History] bisacodyL [Dulcolax] 10 mg RECTAL DAILY PRN 06/22/23 [History] dilTIAZem HCL [Cardizem CD] 120 mg PO DAILY@0800 06/22/23 [History] polyethylene glycoL 3350 [Miralax] 17 gm PO Q4H PRN 06/22/23 [History] Acetaminophen Tab [Tylenol] 650 mg PO Q6HR PRN tab 06/23/23 [Rx] Follow up Appointment(s)/Referral(s): Boby Singh DO [Primary Care Provider] - 1-2 days Patient Instructions/Handouts: Urinary Tract Infection in Women (DC)
[2023-06-23] MEDS ORDERED: CEFDINIR 300 MG CAP PO SCH (14:30)
== END 2023-06-23 14:07 | DRG 689 ==
LOC: EC 06:33 → 5NMEDONC 09:54
PROVIDERS: ADMIT Hospitalist; ATTEND Hospitalist
DX: N39.0 Urinary tract infection, site not specified (principal); E43 Unspecified severe protein-calorie malnutrition; G93.41 Metabolic encephalopathy; Z68.1 Body mass index [BMI] 19.9 or less, adult; C25.9 Malignant neoplasm of pancreas, unspecified; G30.9 Alzheimer's disease, unspecified; F02.80 Dementia in other diseases classified elsewhere, unspecified severity, without behavioral disturbance, psychotic disturbance, mood disturbance, and anxiety; I95.9 Hypotension, unspecified; K76.89 Other specified diseases of liver; E86.0 Dehydration; E03.9 Hypothyroidism, unspecified; Z66 Do not resuscitate; Z51.5 Encounter for palliative care; R32 Unspecified urinary incontinence; I10 Essential (primary) hypertension; M15.9 Polyosteoarthritis, unspecified; Z79.890 Hormone replacement therapy; Z79.899 Other long term (current) drug therapy; Z96.641 Presence of right artificial hip joint; Z87.891 Personal history of nicotine dependence; Z88.0 Allergy status to penicillin
CPT/HCPCS: 36415; 71045; 73502; 80053; 81001; 82140; 84484; 85025; 85610; 85730; 87040; 87086; 93005; 96361; 96365; 96375; 99285